=== PATIENT | female | born 1975 | race Caucasian/White ===

== ENCOUNTER 2018-08-06 19:40 | Emergency (ER) | payer OTHER ==
[2018-08-06] MEDS: ONDANSETRON (ODT) 4 MG TAB ODT (21:07)
[2018-08-06] MEDS: HYDROCODONE/APAP (5/325) TAB PO (21:07)
[2018-08-06] MEDS: DIPHTH/TET/ACEL PERTUSS (ADULT) 0.5 ML VIAL IM* (21:07)
[2018-08-06] MEDS: LIDOCAINE 1% (MPF) 5 ML VIAL INJ (21:08)
== END 2018-08-06 21:15 | disposition home or self-care (01) ==
LOC: FTE 19:40
DX: S71.112A Laceration without foreign body, left thigh, initial encounter (principal); W54.0XXA Bitten by dog, initial encounter; Y92.9 Unspecified place or not applicable; Z23 Encounter for immunization
CPT/HCPCS: 12002; 90471; 90715; 99283-25